=== PATIENT | female | born 1980 | race African-American/Black ===

== ENCOUNTER 2021-02-26 15:29 | Emergency (ER) | payer OTHER ==
[~2021-02-26] VITALS: Ht 165.1 cm; Wt 136.1 kg
[~2021-02-26 15:29] MED LIST: ALBUTEROL NEB; AZITHROMYCIN 2250 MG PO; MEDROLDOSEPACK PO; NORCO 5-325 TA1 EACH PO; ZPAK PO
[2021-02-26 15:49] VITALS: BP 189/114
[2021-02-26] MEDS ORDERED: ZOFRAN ODT4 MG PO (18:33)
== END 2021-02-26 18:41 | disposition home or self-care (01) ==
LOC: ER 15:29
DX: U07.1 COVID-19 (principal); J45.909 Unspecified asthma, uncomplicated; Z79.899 Other long term (current) drug therapy